=== PATIENT | male | born 2000 | race Hispanic/Latino ===

== ENCOUNTER 2019-06-21 23:13 | Emergency (ER) | payer BC ==
[2019-06-22] MEDS ORDERED: Acetaminophen 500 MG TAB ONE (01:01)
[2019-06-22] MEDS ORDERED: Ondansetron ODT 4 MG TAB ONE (01:01)
--- NOTE | 2019-06-22 07:14 | RAD ---
CHEST 2 VIEWS: Date: 06/22/2019 INDICATION: History of fall with chest injury. COMPARISON: None. FINDINGS: Lungs are clear. Heart size is normal. No pleural effusion or pneumothorax is evident. No acute osseo us abnormality is noted. IMPRESSION: No acute abnormality. POS: BH
--- NOTE | 2019-06-22 07:20 | RAD ---
RIGHT HAND 3 VIEWS: Date: 06/21/2019 INDICATION: History of fall with right hand pain. FINDINGS: No acute fracture or subluxation is evident. No radiopaque foreign body is noted. Soft tissues are no rmal appearing. IMPRESSION: No acute osseous abnormality. POS: BH
--- NOTE | 2019-06-22 07:22 | CT ---
PRELIMINARY REPORT/[facility]/EMERGENCY AFTER HOURS PROCEDURE: EXAM: CT Cervical Spine Without Intravenous Contrast. CLINICAL HISTORY: FALL DOWN STAIRS. REPORTS HITTING HEAD ON STAIRS TECHNIQUE: Axial computed tomography images of the cervical spine without intravenous contrast. Sagittal and cor onal reformations performed. COMPARISON: None provided. FINDINGS: BONES: No acute fracture or focal osseous lesion. Bony alignment is anatomic. DISCS / DEGENERATIVE CHANGES: No significant disc or facet degeneration. No significant central canal or neural foraminal stenosis. SOFT TISSUES: No prevertebral soft tissue swelling. No apical pneumothorax. IMPRESSION: No acute cervical spine abnormality. ELECTRONICALLY SIGNED BY: Daniela Flores MD Jun 22, 2019 1:49:49 AM DAY CARE ASSISTANT This report is intended for review by the ordering physician only, in accordance of law. If you recei ve this report in error, please call [facility] at [phone]. FINAL REPORT EMERGENCY AFTER HOURS CT CERVICAL SPINE: I agree with the preliminary report provided by [facility]. No acute fracture or subluxation demonstrated. POS: EVON
== END 2019-06-22 02:40 | disposition home or self-care (01) ==
LOC: ERS 23:13
DX: S09.90XA Unspecified injury of head, initial encounter (principal); S20.212A Contusion of left front wall of thorax, initial encounter; S20.211A Contusion of right front wall of thorax, initial encounter; S60.221A Contusion of right hand, initial encounter; R11.0 Nausea; W10.9XXA Fall (on) (from) unspecified stairs and steps, initial encounter
CPT/HCPCS: 71046; 72125; L0120; Q0162